=== PATIENT | male | born 1960 | race Two or more races ===

== ENCOUNTER 2016-08-17 07:59 | Emergency (ER) | payer BC ==
[~2016-08-17] VITALS: Ht 177.8 cm; Wt 150.6 kg
[2016-08-17] MEDS ORDERED: OXYC15TA77 PO (08:16)
[2016-08-17] MEDS ORDERED: METH2.5T3 PO (08:16)
[2016-08-17] MEDS ORDERED: ETAN50IN5 SUBCUT (08:16)
[2016-08-17] MEDS ORDERED: HYDR200T OR (08:16)
[2016-08-17] MEDS ORDERED: ENA10T PO (08:16)
[2016-08-17 10:06] LABS: Basophils # (auto) 0 uL; Basophils % (auto) 0.5 % (0.0-2.0); Eosinophils # (auto) 0.1 uL; Eosinophils % (auto) 1.3 % (0.0-7.0); Hematocrit 43.9 % (41.0-53.0); Hemoglobin 13.9 g/dL (13.5-17.5); Lymphocytes # (auto) 0.7 uL; Lymphocytes % (auto) 10.1 % (10.0-50.0); Mean Corpuscular Hemoglobin 30.7 pg (28.0-32.0); Mean Corpuscular Hgb Conc. 31.7 g/dL (32.0-36.0); Mean Corpuscular Volume 96.7 fL (80.0-100.0); Mean Platelet Volume 7.8 fL (7.4-10.4); Monocytes # (auto) 0.6 uL; Monocytes % (auto) 7.8 % (0.0-12.0); Neutrophils # (auto) 5.9 uL; Neutrophils % (auto) 80.3 % (37.0-80.0); Platelet Count (auto) 235 10^3/uL (140-450); Red Cell Distribution Width 14.8 % (11.6-16.0); White Blood Cell 7.4 10^3/uL (4.4-10.8)
[2016-08-17 10:11] LABS: INR 1.1 (0.9-1.15); Partial Thromboplastin Time 27.3 sec (22.64-33.71); Prothrombin Time 11.3 sec (9.37-12.3)
[2016-08-17 10:22] LABS: Albumin 3.4 g/dL (3.4-5.0); BUN/Creatinine Ratio 24.1; Calcium 8.5 mg/dL (8.5-10.1); Magnesium 2.2 mg/dL (1.6-2.6); Potassium 4.2 mmol/L (3.5-5.1)
[2016-08-17 10:25] LABS: Bilirubin, Total 0.9 mg/dL (0.2-1.0); Total Protein 6.9 g/dL (6.4-8.2)
[2016-08-17] MEDS ORDERED: HYDROmorphone HCL 2 MG/ML VL IV ONE ×2 (11:45→16:00)
[2016-08-17] MEDS ORDERED: ONDANSETRON HCL 4 MG/2 ML VIAL IV ONE ×2 (11:45→16:00)
[2016-08-17 18:40] VITALS: BP 107/54
== END 2016-08-17 18:48 | disposition home or self-care (01) ==
LOC: EDBD 07:59 → ER 08:07
DX: S70.02XA Contusion of left hip, initial encounter (principal); M19.90 Unspecified osteoarthritis, unspecified site; E78.5 Hyperlipidemia, unspecified; I10 Essential (primary) hypertension; F17.210 Nicotine dependence, cigarettes, uncomplicated; M25.532 Pain in left wrist; M25.562 Pain in left knee; Z79.899 Other long term (current) drug therapy; W19.XXXA Unspecified fall, initial encounter; Y93.89 Activity, other specified; Y99.8 Other external cause status; Y92.098 Other place in other non-institutional residence as the place of occurrence of the external cause
CPT/HCPCS: 36415; 72192; 73110; 73502; 73562; 74176; 80053; 83735; 84484; 85025; 85610; 85730; 93005; 94761; 96374; 96375; 96376; 99285; J1170; J2405; J7030

== ENCOUNTER 2017-08-21 11:48 | Observation (INO) | payer BC ==
[~2017-08-21] VITALS: Ht 180.3 cm; Wt 147.4 kg
[~2017-08-21 11:48] MED LIST: ENA10T PO; ETAN50IN5 SUBCUT; HYDR200T OR; METH2.5T3 PO; OXYC15TA77 PO
[2017-08-21 12:12] LABS: Basophils # (auto) 0.1 uL; Basophils % (auto) 0.9 % (0.0-2.0); Eosinophils # (auto) 0.1 uL; Eosinophils % (auto) 1.3 % (0.0-7.0); Hematocrit 47.3 % (41.0-53.0); Lymphocytes # (auto) 0.9 uL; Lymphocytes % (auto) 13.5 % (10.0-50.0); Mean Corpuscular Hemoglobin 32.9 pg (28.0-32.0); Mean Corpuscular Hgb Conc. 33.9 g/dL (32.0-36.0); Mean Corpuscular Volume 97.1 fL (80.0-100.0); Monocytes # (auto) 0.5 uL; Monocytes % (auto) 7.7 % (0.0-12.0); Neutrophils # (auto) 5.1 uL; Neutrophils % (auto) 76.6 % (37.0-80.0); Nucleated Red Blood Cells % 0.1 %; Platelet Count (auto) 224 10^3/uL (140-450); Red Blood Cells 4.87 10^6/uL (4.5-5.90); Red Cell Distribution Width 13.8 % (11.8-14.3); White Blood Cell 6.7 10^3/uL (4.4-10.8)
[2017-08-21 12:42] LABS: Albumin 3.4 g/dL (3.4-5.0); Anion Gap 7 (5-15); Blood Urea Nitrogen 11 mg/dL (7-18); Calcium 8.3 mg/dL (8.5-10.1); Carbon Dioxide 26 mmol/L (21-32); Chloride 106 mmol/L (98-107); Glucose 89 mg/dL (74-106); Potassium 4.6 mmol/L (3.5-5.1); Sodium 139 mmol/L (136-145)
[2017-08-21 12:44] LABS: Alanine Aminotransferase 13 U/L (16-61); BUN/Creatinine Ratio 16.9; GFR African American 163 mL/min; GFR Non-African American 135 mL/min; Magnesium 1.9 mg/dL (1.6-2.6)
[2017-08-21 12:50] LABS: Alkaline Phosphatase 86 U/L (45-117); Aspartate Aminotransferase 12 U/L (15-37); Bilirubin, Total 0.7 mg/dL (0.2-1.0); Total Protein 7.1 g/dL (6.4-8.2)
[2017-08-21 14:18] LABS: INR 1.03 (0.9-1.15); Partial Thromboplastin Time 27.1 sec (22.64-33.71); Prothrombin Time 11.2 sec (9.37-12.3)
[2017-08-21 17:40] LABS: Urine Blood Negative /uL (Negative); Urine Mucus FEW (None Seen); Urine Specific Gravity 1.013 (1.001-1.035); Urine Sperm PRESENT /hpf (None Seen); Urine WBC 88 /hpf (0 - 3); Urine WBC Clumps PRESENT /hpf (None Seen)
[2017-08-21 17:44] LABS: Urine Bacteria MANY /hpf (None Seen)
[2017-08-21] MEDS ORDERED: ASPirin 81 mg TAB PO ONE (18:00)
[2017-08-21] MEDS ORDERED: cefTRIAXone 1GM/10ml IVPUSH 10 ML IV ONE (18:45)
[2017-08-21] MEDS ORDERED: DEXAMETHASONE SOD PHOS 10MG/1ML VIAL INJ IV ONE (19:30)
[2017-08-21] MEDS ORDERED: HYDROcodone-ACET 10/325MG TAB PO ONE (20:30)
[2017-08-21 22:07] VITALS: BP 150/70
== END 2017-08-22 02:37 | disposition short-term general hospital (02) | DRG 92 ==
LOC: ER 11:48 → EDBD 11:48 → OVERFLOW 13:45 → ER 08-22 02:37
PROVIDERS: ADMIT Family Medicine; ATTEND Family Medicine
DX: Q28.2 Arteriovenous malformation of cerebral vessels (principal); N39.0 Urinary tract infection, site not specified; E78.5 Hyperlipidemia, unspecified; I10 Essential (primary) hypertension; M06.9 Rheumatoid arthritis, unspecified; F17.210 Nicotine dependence, cigarettes, uncomplicated
CPT/HCPCS: 36415; 70450; 71045; 80053; 81001; 82962; 83735; 84484; 85025; 85610; 85730; 96374; 96375; 99291; G0378; J1100; 93005

== ENCOUNTER 2021-02-08 14:44 | Emergency (ER) | payer BC, MEDICARE ==
[~2021-02-08] VITALS: Ht 180.3 cm; Wt 132.9 kg
[~2021-02-08 14:44] MED LIST changes: -ENA10T PO; +ENAL10TA12 PO; +ETAN50IN10 SUBCUT; -ETAN50IN5 SUBCUT; +HYDR-4188 OR; -HYDR200T OR; +METH2.5T PO; -METH2.5T3 PO
[2021-02-08 21:45] LABS: Albumin 3.1 g/dL (3.4-5.0); BUN/Creatinine Ratio 19.1; Basophils # (auto) 0 10 ^3/uL (0-0.2); Basophils % (auto) 0.4 % (0.0-2.0); Bilirubin, Total 0.8 mg/dL (0.2-1.0); Calcium 8.1 mg/dL (8.5-10.1); Eosinophils # (auto) 0 10 ^3/uL (0-0.8); Eosinophils % (auto) 0.4 % (0.0-7.0); Hematocrit 48.4 % (41.0-53.0); Hemoglobin 16.8 g/dL (13.5-17.5); Lymphocytes # (auto) 1.4 10 ^3/uL (0.4-5.4); Lymphocytes % (auto) 15.9 % (10.0-50.0); Mean Corpuscular Hemoglobin 34.4 pg (28.0-32.0); Mean Corpuscular Hgb Conc. 34.8 g/dL (32.0-36.0); Mean Corpuscular Volume 98.9 fL (80.0-100.0); Monocytes # (auto) 0.8 10 ^3/uL (0-1.3); Neutrophils # (auto) 6.5 10 ^3/uL (1.6-8.6); Neutrophils % (auto) 74.3 % (37.0-80.0); Nucleated Red Blood Cells % 0.3 %; Potassium 3.9 mmol/L (3.5-5.1); Red Cell Distribution Width 14.3 % (11.8-14.3); White Blood Cell 8.8 10^3/uL (4.4-10.8)
[2021-02-09 09:50] VITALS: BP 106/63
== END 2021-02-09 10:45 | disposition home or self-care (01) ==
LOC: ER 14:44 → EDBD 14:44 → ER 02-09 10:43
DX: K62.89 Other specified diseases of anus and rectum (principal); K59.00 Constipation, unspecified; R25.2 Cramp and spasm; F17.210 Nicotine dependence, cigarettes, uncomplicated; I10 Essential (primary) hypertension; E78.5 Hyperlipidemia, unspecified; M06.9 Rheumatoid arthritis, unspecified; Z86.73 Personal history of transient ischemic attack (TIA), and cerebral infarction without residual deficits; Z79.899 Other long term (current) drug therapy
CPT/HCPCS: 36415; 74176; 80053; 82150; 83690; 85025